=== PATIENT | female | born 1975 | race Hispanic/Latino ===

== ENCOUNTER 2017-03-22 10:43 | Outpatient (CLI) | payer OTHER ==
--- NOTE | 2017-03-22 16:13 | ULT ---
ULTRASOUND ABDOMEN COMPLETE 03/22/17 HISTORY: Right upper abdominal pain. Reference made to 12/11/16 exam. TECHNIQUE: Louis-scale ultrasound evaluation of the liver, gallbladder, spleen, pancreas, common bile duct, kidn eys, abdominal aorta, and inferior vena cava (IVC). FINDINGS: There is atherosclerotic irregularity of the imaged aspects of the abdominal aorta. No focal hepatic lesion. No acute pathology of the gallbladder. The common duct is normal in diameter at 4 mm. No hy dronephrosis involving the kidneys. The spleen is grossly unremarkable. No ascites. IMPRESSION: No acute intra-abdominal abnormalities. POS: [facility]
== END 2017-03-22 10:44 | disposition home or self-care (01) ==
LOC: ULT 10:43
PROVIDERS: ATTEND Family Medicine
DX: R10.11 Right upper quadrant pain (principal)
CPT/HCPCS: 76700

== ENCOUNTER 2017-05-22 13:46 | Outpatient (CLI) | payer OTHER ==
--- NOTE | 2017-05-23 12:16 | MMO ---
MAMMOGRAM DIGITAL SCREENING BILATERAL: DATE: 05/22/17. HISTORY: A 41-year-old female for routine bilateral baseline screening mammogram. COMPARISON: None. TECHNIQUE: Digital mammographic views. Computer-aided detection (CAD) utilized. FINDINGS: The breasts are heterogeneously dense, which may obscure small masses. There is no evidence of suspicious mass, suspicious calcifications, or architectural distortion. IMPRESSION: 1) BIRADS 1- Negative. 2) Recommendation: routine bilateral annual screening mammogram (unless the patient develops suspicio us clinical findings that would warrant earlier imaging follow up). jarocho [] POS: [facility]
== END 2017-05-22 13:47 | disposition home or self-care (01) ==
LOC: SCSMAMMO 13:46
PROVIDERS: ATTEND Family Medicine
DX: Z12.31 Encounter for screening mammogram for malignant neoplasm of breast (principal)
CPT/HCPCS: 77067; G0202

== ENCOUNTER 2018-07-07 09:03 | Outpatient (CLI) | payer BC ==
--- NOTE | 2018-07-07 10:49 | ULT ---
ABDOMINAL ULTRASOUND: Date: 07/07/18 COMPARISON: None. HISTORY: Right upper quadrant pain. TECHNIQUE: Multiplanar Louis scale sonographic imaging of the abdomen provided. FINDINGS: Imaged pancreatic parenchyma appears grossly unremarkable. The tail is obscured by bowel gas. No foca l liver lesion or intrahepatic biliary dilatation. Imaged IVC and aorta appear within normal limits. The common bile duct measures 3.0 mm, within normal limits. No gallbladder wall thickening or pericho lecystic fluid. No gallstones are noted. Credentialer reports a negative Soriano's sign. Right kidney measures 11.5 cm craniocaudal dimension and demonstrates no stone, hydronephrosis, or ma ss lesion. Left kidney measures 11.3 cm craniocaudal dimension and demonstrates no stone, hydronephro sis, or mass. Spleen measures up to 10.9 cm, within normal limits. IMPRESSION: Unremarkable abdominal ultrasound. POS: [facility]
== END 2018-07-07 09:04 | disposition home or self-care (01) ==
LOC: SCSULT 09:03
PROVIDERS: ATTEND Family Medicine
DX: R10.11 Right upper quadrant pain (principal)
CPT/HCPCS: 76700

== ENCOUNTER 2018-07-22 10:47 | Outpatient (CLI) | payer BC ==
--- NOTE | 2018-07-22 12:58 | MMO ---
BILATERAL SCREENING MAMMOGRAM: HISTORY: A 42-year-old female. Routine screening mammography. COMPARISON: 05/22/2017. TECHNIQUE: CC and MLO views of both breasts are submitted for interpretation. This patient's mammogram is revie wed with the assistance of computer-aided detection. FINDINGS: Breasts are composed of heterogeneously dense fibroglandular tissue which limits the sensitivity of m ammography in the detection of underlying malignancy. Bilaterally, no suspicious dominant mass, architectural distortion, or suspicious calcification. IMPRESSION: BI-RADS category 1, negative exam. RECOMMENDATION: Annual mammogram. BIRADS 1: Negative Routine annual screening mammography (for women over age 40) POS: [facility]
== END 2018-07-22 10:48 | disposition home or self-care (01) ==
LOC: SCSMAMMO 10:47
PROVIDERS: ATTEND Family Medicine
DX: Z12.31 Encounter for screening mammogram for malignant neoplasm of breast (principal)
CPT/HCPCS: 77067

== ENCOUNTER 2018-07-25 12:31 | Outpatient (CLI) | payer BC ==
--- NOTE | 2018-07-25 15:54 | NM ---
NUCLEAR MEDICINE HIDA SCAN: HISTORY: Right upper quadrant pain. COMPARISON: None. TECHNIQUE: The patient was administered 5.5 mCi of Technetium 99m mebrofenin intravenously. Gallbladder ejectio n fraction was determined after the patient was administered 8 ounces of ensure orally. Ensure was i ngested 1 hour after the injection of radiopharmaceuticals. FINDINGS: Appropriate uptake of the radiotracer by the hepatic parenchyma. There is prompt excretion of radiot racer into the intrahepatic biliary system. Localization of radiotracer into the gallbladder is note d as early as 60 minutes. There is passage of radiotracer from the common bile duct into small bowel loops. 13% ejection fraction. IMPRESSION: 13% ejection fraction suggesting gallbladder dyskinesia/chronic cholecystitis. POS: [facility]
== END 2018-07-25 12:32 | disposition home or self-care (01) ==
LOC: NM 12:31
PROVIDERS: ATTEND Internal Medicine Gastroenterology
DX: R10.11 Right upper quadrant pain (principal)
CPT/HCPCS: 78227; A9537

== ENCOUNTER 2018-08-22 00:52 | Outpatient (CLI) | payer BC ==
[2018-08-22 12:10] LABS: #Basophils 0.1 thou/uL (0.0-0.2); #Eosinphils 0.1 thou/uL (0.0-0.7); #Lymphocytes 1.8 thou/uL (1.20-3.40); #Monocytes 0.5 thou/uL (0.11-0.59); #Neutrophils 3.4 thou/uL (1.40-6.50); %Basophils 1.4 % (0.0-1.0); %Eosinophils 1.5 % (0.0-10.0); %Lymphocytes 30.3 % (21.0-51.0); %Monocytes 7.7 % (0.0-10.0); %Neutrophils 59.1 % (42.0-75.0); Hemoglobin 13.3 g/dL (12.0-16.0); Mean Corpuscular HGB CONC 32.8 g/dL (32.0-36.0); Mean Corpuscular Hemoglobin 28.8 pg (27.0-31.0); Mean Corpuscular Volume 87.6 fL (78.0-98.0); Mean Platelet Volume 11.7 fL (7.4-10.4); Platelet Count 146 thou/uL (130-400); RBC Distribution Width 11.2 % (11.5-14.5); Red Blood Cell (RBC) Count 4.64 mill/uL (4.20-5.40); White Blood Cell (WBC) Count 5.8 thou/uL (4.8-10.8)
[2018-08-22 12:42] LABS: ALT (SGPT) 18 U/L (8-55); AST (SGOT) 13 U/L (5-34); Albumin 4.1 g/dL (3.5-5.0); Alkaline Phosphatase 42 U/L (40-150); Anion Gap 13 mmol/L (10-20); BUN (Urea Nitrogen) 12 mg/dL (7.0-18.7); Bilirubin, Total 0.5 mg/dL (0.2-1.2); Calc. Creatinine Clearance 0 mL/min (70-130); Calcium 9.4 mg/dL (7.8-10.44); Carbon Dioxide 27 mmol/L (22-29); Chloride 102 mmol/L (98-107); Estimated GFR-MDRD Greater than 90; Globulin 2.7 g/dL (2.4-3.5); Glucose 81 mg/dL (70-105); Potassium 3.9 mmol/L (3.5-5.1); Protein, Total 6.8 g/dL (6.0-8.3); Sodium 138 mmol/L (136-145)
== END 2018-08-22 00:53 | disposition home or self-care (01) ==
LOC: LABBT 00:52
PROVIDERS: ATTEND Surgery
DX: Z01.812 Encounter for preprocedural laboratory examination (principal); K82.8 Other specified diseases of gallbladder
CPT/HCPCS: 80053; 85025

== ENCOUNTER 2018-08-29 05:40 | Day surgery (SDC) | payer BC ==
[2018-08-29] MEDS ORDERED: Ketorolac Tromethamine 30 MG/ML VIAL ONE (06:28)
[2018-08-29] MEDS ORDERED: Fentanyl 100 MCG/2 ML VIAL ONE ×3 (06:55→09:36)
[2018-08-29] MEDS ORDERED: Bupivacaine/Epinephrine 0.25% 30 ML VIAL ONE (07:13)
[2018-08-29] MEDS ORDERED: Iothalamate Meglumine 60% 50 ML VIAL FS ONE (07:15)
[2018-08-29] MEDS ORDERED: Midazolam HCl 2 mg/2 ml Vial ONE (07:22)
[2018-08-29] MEDS ORDERED: Meperidine HCl/PF 25 MG/ML VIAL ONE (09:10)
[2018-08-29] MEDS ORDERED: traMADol HCl 50 MG TAB ONE (10:17)
[2018-08-29] MEDS ORDERED: PROPOFOL 200 MG/20 ML VIAL ONE (10:17)
[2018-08-29] MEDS ORDERED: Lidocaine 1% PF 5 ML VIAL ONE (10:17)
[2018-08-29] MEDS ORDERED: Glycopyrrolate 0.2 MG/ML 5 ML SYRINGE ONE (10:17)
[2018-08-29] MEDS ORDERED: Rocuronium Bromide 10 MG/ML (10ML VIAL) ONE (10:17)
[2018-08-29] MEDS ORDERED: Ondansetron PF 4 MG/2 ML Vial ONE (10:17)
[2018-08-29] MEDS ORDERED: Dexamethasone 20 MG/5 ML VIAL ONE (10:17)
[2018-08-29] MEDS ORDERED: Promethazine HCl 25 MG/ML VIAL ONE (10:18)
--- NOTE | 2018-09-01 14:34 | OP ---
DATE OF PROCEDURE: 08/29/2018 PROCEDURE PERFORMED: Laparoscopic cholecystectomy. PREOPERATIVE DIAGNOSIS: Biliary dyskinesia. POSTOPERATIVE DIAGNOSIS: Biliary dyskinesia. HISTORY: Ms. Vides is a 42-year-old woman who presented with symptoms consistent with biliary colic. She did not have any gallstones on ultrasound, but her ejection fraction was low and it was felt that she had biliary dyskinesia causing her symptoms. Recommendation was made to proceed with laparoscopic cholecystectomy for symptomatic relief. DESCRIPTION OF PROCEDURE: After informed consent was obtained and appropriate preoperative antibiotics were administered, the patient was taken to the operating room. She was placed in a supine position and general endotracheal anesthesia was administered. She was prepped and draped in a standard sterile fashion and local anesthesia was infused through the skin and subcutaneous tissues at the level of the umbilicus. A transverse skin incision was made. The fascia was elevated. A Veress needle was placed into the abdominal cavity and carbon dioxide inflated to the abdominal cavity. Opening pressure was 5 and the patient tolerated insufflation to a pressure of 15 without problems. The Veress needle was withdrawn and a ClearView 5 mm trocar advanced under direct laparoscopic vision into the abdominal cavity which was carefully examined. There was no evidence of Veress needle or trocar injury. The gallbladder appeared chronically distended, but there were no significant adhesions. Local anesthesia was infused through the skin and subcutaneous tissues at the epigastric, right upper quadrant, and right lateral abdominal locations. Skin incisions were made and 5 mm trocars were placed under direct vision of the laparoscope. The gallbladder fundus was grasped and withdrawn superiorly over the liver exposing the infundibulum which was grasped and withdrawn laterally. The serosa was stripped inferiorly at the level of the neck of the gallbladder and the cystic duct and artery dissected free circumferentially and traced to their insertion in the gallbladder. A critical view of safety was obtained and the cystic duct and artery were clipped and divided between clips. The gallbladder was then dissected free of the gallbladder bed using hook electrocautery. The gallbladder was placed into an EndoCatch bag, and drawn out through the epigastric incision. The epigastric trocar was replaced and hemostasis at the operative site was verified. The clips were seen across the cystic duct and artery stumps in good position. There was no bleeding and no leakage of bile. The epigastric, right upper quadrant and right lateral trocars were removed and hemostasis verified. The carbon dioxide gas was allowed to desufflate through the umbilical trocar following which that trocar was removed and all skin incisions were closed with subcuticular 4-0 Monocryl suture. Of note, only 5 mm ports were used for this operation. Dermabond dressings were placed at the skin incisions and the patient was extubated and taken to Recovery in good condition. Estimated blood losswas minimal. There were no complications. Specimen is gallbladder and contents. Job ID: [id number] [facility]
== END 2018-08-29 11:45 | disposition home or self-care (01) ==
LOC: SDC 05:40
PROVIDERS: ATTEND Surgery
PROC: 0FT44ZZ Resection of Gallbladder, Percutaneous Endoscopic Approach (ICD-10-PCS; principal; 2018-08-29)
DX: K81.1 Chronic cholecystitis (principal); K82.8 Other specified diseases of gallbladder; J30.89 Other allergic rhinitis; Z79.899 Other long term (current) drug therapy; Z88.5 Allergy status to narcotic agent
CPT/HCPCS: 88304; J0131; J1100; J1610; J1885; J2001; J2175; J2250; J2405; J2550; J2704; J3010; Q9961